=== PATIENT | female | born 1965 | race Caucasian/White ===

== ENCOUNTER 2016-11-22 14:53 | Emergency (ER) | payer BC ==
--- NOTE | 2016-11-22 15:13 | EDM.PDOC ---
ED HPI GENERAL MEDICAL PROBLEM - General Chief Complaint: Respiratory Problem Stated Complaint: COUGH/SOB Time Seen by Provider: 11/22/16 15:05 - History of Present Illness INITIAL COMMENTS - FREE TEXT/NARRATIVE: 51-year-old female presents emergency room with cough. This is been going on for a little over a month now patient's been treated with a round of amoxicillin and is not getting better. She's now noticing some productivity to the cough mostly clear slightly off color. Patient notices some wheezy sounds coming from her throat. She does not have a lot of upper airway congestion but says she has a lot of drainage. She is treated for hypertension hyperlipidemia and sleep apnea she has not had any recent medication changes. 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, nyquil - Related Data Allergies Allergy/AdvReac Type Severity Reaction Status Date / Time No Known Allergies Allergy Verified 11/22/16 15:00 Home Meds: Home Meds Multivitamin [Multivitamins] 1 each PO DAILY 12/30/13 [History] Cyanocobalamin/FA/Pyridoxine [Folbic] 1 tab PO DAILY 08/28/16 [History] Hydrochlorothiazide [Hydrochlorothiazide] 1 tab PO DAILY 08/28/16 [History] Venlafaxine HCl [Venlafaxine ER] 2 cap PO DAILY 08/28/16 [History] atorvaSTATin Calcium [Atorvastatin Calcium] 1 tab PO DAILY 08/28/16 [History] Doxycycline Hyclate 100 mg PO Q12H #14 capsule 11/22/16 [Rx] Doxycycline [Vibramycin] 100 mg PO BID #14 cap 11/22/16 [Rx] Past Medical History HEENT History: Reports: Impaired vision, Other (see below) Other HEENT History: wears contacts/glasses Cardiovascular History: Reports: High cholesterol, Hypertension Respiratory History: Reports: Sleep apnea Other Genitourinary History: stress urinary incontinence 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: Reports: Polycystic Ovaries, , Other (see below) Other OB/BYN History: menorrhagia, x2, hysteroscopy Musculoskeletal History: Neurological History: Reports: None Psychiatric History: Reports: Anxiety, Other (see below) 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 Endocrine/Metabolic History: Reports: Obesity/BMI 30+ Hematologic History: Reports: None Immunologic History: Reports: None Oncologic (Cancer) History: Reports: None Dermatologic History: Reports: Eczema - Past Surgical History HEENT Surgical History: Reports: Adenoidectomy, Tonsillectomy GI Surgical History: Reports: Bariatric procedure Female Surgical History: Reports: Breast reduction, D&C, Other (see below) Other Female Surgeries/Procedures: bladder lift Other Musculoskeletal Surgeries/Procedures:: surgery for broken femur with olu placement Social & Family History - Tobacco Use Smoking Status *Q: Never Smoker - Recreational Drug Use Recreational Drug Use: No ED ROS GENERAL - Review of Systems Review Of Systems: See Below Constitutional: Reports: no symptoms. Denies: fever, chills HEENT: Reports: Rhinitis. Denies: Ear pain, Eye pain, Sinus problem Respiratory: Reports: Wheezing, Cough, Sputum. Denies: Shortness of Breath, Pleuritic Chest Pain Cardiovascular: Reports: No symptoms GI/Abdominal: Reports: No symptoms Neurological: Reports: No Symptoms ED EXAM, GENERAL - Physical Exam Exam: See Below Exam Limited By: No limitations General Appearance: alert, no apparent distress Eye Exam: bilateral eye: normal inspection Ears: normal external exam, normal canal, hearing grossly normal, normal TMs Nose: normal inspection, normal mucosa, no blood Throat/Mouth: Normal inspection, Normal lips, Normal teeth, Normal gums, Normal oropharynx, Normal voice, No airway compromise Head: atraumatic, normocephalic, other (No sinus tenderness with percussion) Neck: normal inspection, supple, non-tender, full range of motion. No: lymphadenopathy (L), lymphadenopathy (R) Respiratory/Chest: no respiratory distress, lungs clear, normal breath sounds Cardiovascular: regular rate, rhythm, no edema, no murmur Course - Vital Signs Last Recorded V/S: Last Vital Signs Temp 35.9 C 11/22/16 15:00 Pulse 85 11/22/16 15:00 Resp 16 11/22/16 15:00 BP 142/87 H 11/22/16 15:00 Pulse Ox 99 11/22/16 15:29 - Orders/Labs/Meds Orders: Active Orders 24 hr Category Date Time Status RT Post Treatment Assessment [RC] Click To Edit Care 11/22/16 15:16 Active RT Pre-Treatment Assessment [RC] Click To Edit Care 11/22/16 15:16 Active Chest 2V [CR] Stat Exams 11/22/16 15:14 Taken Meds: Medications Discontinued Medications Generic Name Dose Route Start Last Admin Trade Name Prosper PRN Reason Stop Dose Admin Albuterol 6.7 gm 11/22/16 15:15 11/22/16 15:27 Proventil Hfa INH 11/22/16 15:16 2 puff ONETIME ONE Administration - Re-Assessments/Exams Free Text/Narrative Re-Assessment/Exam: 11/22/16 15:56 Chest x-ray is nondiagnostic. Patient did get some improvement with her albuterol MDI. With the duration this patient's illness will put her on a week's worth of doxycycline 100 mg twice a day Departure - Departure Time of Disposition: 15:57 Disposition: Home, Self-Care 01 Clinical Impression: Bronchitis Prescriptions: Doxycycline [Vibramycin] 100 mg PO BID #14 cap Doxycycline Hyclate 100 mg PO Q12H #14 capsule Additional Instructions: Return to the emergency room with any questions or problems. Followup with your regular provider at the end of this next week if needed. He been started on albuterol inhaler uses 2 puffs every 4 hours while awake. He been given a prescription for doxycycline, this is an antibiotic, take one twice daily for one week. - My Orders Last 24 Hours: My Active Orders 11/22/16 15:14 Chest 2V [CR] Stat 11/22/16 15:16 RT Post Treatment Assessment [RC] Click To Edit RT Pre-Treatment Assessment [RC] Click To Edit - Assessment/Plan Last 24 Hours: My Active Orders 11/22/16 15:14 Chest 2V [CR] Stat 11/22/16 15:16 RT Post Treatment Assessment [RC] Click To Edit RT Pre-Treatment Assessment [RC] Click To Edit
[2016-11-22] MEDS ORDERED: Albuterol 6.7 GM Inhaler INH ONE (15:15)
[2016-11-22 16:20] VITALS: BP 137/82
--- NOTE | 2016-11-23 11:58 | CR ---
Chest: Two views of the chest were obtained. Comparison: Previous chest x-ray of 10/19/13. Heart size is normal. Mild tortuosity of the thoracic aorta is seen. Lungs are clear with no acute infiltrates. Bony structures appear within normal limits for the patient's age. Surgical clips are seen within the upper abdomen. Impression: 1. Incidental findings. Nothing acute is identified on two-view chest x-ray. Diagnostic code #2
== END 2016-11-22 16:08 | disposition home or self-care (01) ==
LOC: JD.ED 14:53
DX: J40 Bronchitis, not specified as acute or chronic (principal); E78.00 Pure hypercholesterolemia, unspecified; I10 Essential (primary) hypertension; F41.9 Anxiety disorder, unspecified; E66.9 Obesity, unspecified; Z79.899 Other long term (current) drug therapy; Z98.890 Other specified postprocedural states; Z98.84 Bariatric surgery status
CPT/HCPCS: 71020; 94664; 99285; A9270; 99283

== ENCOUNTER 2018-09-14 07:40 | Emergency (ER) | payer BC ==
--- NOTE | 2018-09-14 08:13 | EDM.PDOC ---
ED HPI GENERAL MEDICAL PROBLEM - General Chief Complaint: Chest Pain Stated Complaint: CHEST PAIN Time Seen by Provider: 09/14/18 07:51 Source of Information: Reports: Patient, RN Notes Reviewed History Limitations: Reports: No Limitations - History of Present Illness INITIAL COMMENTS - FREE TEXT/NARRATIVE: The patient states that she has been experiencing retrosternal chest discomfort on and off for the past 3 months. The patient points with one finger to her midsternum, although she states that it sometimes radiates around her chest, and occasionally down her left arm. She describes the sensation as "throbbing" or an ache, more of a discomfort than a pain. It tends to come on gradually, lasting only a few minutes. The patient has not identified any modifiers, including exertion. She has no associated dyspnea, nausea, diaphoresis, or sense of impending doom. No prior medical evaluation for this complaint. It is unclear why the patient specifically came into the ED this morning, saying only that her made her come. The patient's PCP is Dr. Riojas. - Related Data Allergies Allergy/AdvReac Type Severity Reaction Status Date / Time No Known Allergies Allergy Verified 09/14/18 07:47 Home Meds: Home Meds Multivitamin [Multivitamins] 1 each PO DAILY 12/30/13 [History] Hydrochlorothiazide 25 mg PO DAILY 08/28/16 [History] Venlafaxine HCl [Venlafaxine ER] 150 mg PO DAILY 08/28/16 [History] atorvaSTATin Calcium [Atorvastatin Calcium] 40 mg PO DAILY 08/28/16 [History] Aspirin [Halfprin] 81 mg PO DAILY 09/14/18 [History] Past Medical History HEENT History: Reports: Impaired Vision, Other (See Below) Other HEENT History: wears contacts/glasses Cardiovascular History: Reports: High Cholesterol, Hypertension Respiratory History: Reports: Sleep Apnea (nightly CPAP 6) Genitourinary History: Reports: Urinary Incontinence (stress incontinence) 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 ED EXAM, GENERAL - Physical Exam Exam: See Below Exam Limited By: No Limitations General Appearance: Alert, WD/WN, No Apparent Distress Eye Exam: Bilateral Eye: EOMI, Normal Inspection Ears: Normal External Exam, Hearing Grossly Normal Nose: Normal Inspection Throat/Mouth: Normal Inspection, Normal Lips, Normal Voice, No Airway Compromise Head: Atraumatic, Normocephalic Neck: Normal Inspection, Full Range of Motion Respiratory/Chest: No Respiratory Distress, Lungs Clear, Normal Breath Sounds, No Accessory Muscle Use, Chest Non-Tender Cardiovascular: Normal Peripheral Pulses, Regular Rate, Rhythm, No Gallop, No JVD, No Murmur, No Rub Peripheral Pulses: 4+: Radial (L), Radial (R) GI/Abdominal: Normal Bowel Sounds, Soft, Non-Tender, No Organomegaly, No Distention, No Abnormal Bruit, No Mass, Other (Obese) (Female) Exam: Deferred Rectal (Female) Exam: Deferred Back Exam: Normal Inspection, Full Range of Motion, NT Extremities: Normal Inspection, Normal Range of Motion, Normal Capillary Refill Neurological: Alert, Oriented, Normal Cognition, No Motor/Sensory Deficits Psychiatric: Normal Affect Skin Exam: Warm, Dry, Intact, Normal Color, No Rash EKG INTERPRETATION EKG Date: 09/14/18 Time: 07:45 Rhythm: NSR Rate (Beats/Min): 82 [place]: Normal P-Wave: Present QRS: Normal ST-T: Normal QT: Normal Comparison: NA - No Prior EKG Course - Vital Signs Last Recorded V/S: Last Vital Signs Temp 36.1 C 09/14/18 07:40 Pulse 86 09/14/18 07:40 Resp 16 09/14/18 07:40 BP 145/94 H 09/14/18 07:40 Pulse Ox 96 09/14/18 07:40 - Orders/Labs/Meds Orders: Active Orders 24 hr Category Date Time Status EKG Documentation Completion [RC] STAT Care 09/14/18 07:42 Active Labs: Laboratory Tests 09/14/18 09/14/18 09/14/18 Range/Units 08:00 08:00 08:00 WBC 6.22 (3.98-10.04) K/mm3 RBC 5.00 (3.98-5.22) M/mm3 Hgb 14.6 (11.2-15.7) gm/L Hct 44.0 (34.1-44.9) % MCV 88.0 (79.4-94.8) fl MCH 29.2 (25.6-32.2) pg MCHC 33.2 (32.2-35.5) g/dl RDW Std Deviation 46.6 H (36.4-46.3) fL Plt Count 176 L (182-369) K/mm3 MPV 12.6 H (9.4-12.3) fl Neutrophils % (Manual) 56 (40-60) % Band Neutrophils % 0 (0-10) % Lymphocytes % (Manual) 33 (20-40) % Atypical Lymphs % 0 % Monocytes % (Manual) 8 (2-10) % Eosinophils % (Manual) 3 (0.7-5.8) % Basophils % (Manual) 0 L (0.1-1.2) Platelet Estimate Adequate RBC Morph Comment Normal D-Dimer, Quantitative 0.92 H (0.19-0.50) mg/L Sodium 141 (136-145) mEq/L Potassium 3.5 (3.5-5.1) mEq/L Chloride 104 (98-107) mEq/L Carbon Dioxide 30 (21-32) mEq/L Anion Gap 10.5 (5-15) BUN 18 (7-18) mg/dL Creatinine 0.8 (0.55-1.02) mg/dL Est Cr Clr Drug Dosing 67.27 mL/min Estimated GFR (MDRD) > 60 (>60) mL/min BUN/Creatinine Ratio 22.5 H (14-18) Glucose 97 (74-106) mg/dL Calcium 8.8 (8.5-10.1) mg/dL Total Bilirubin 0.4 (0.2-1.0) mg/dL AST 23 (15-37) U/L ALT 35 (14-59) U/L Alkaline Phosphatase 107 (46-116) U/L Troponin I < 0.017 (0.00-0.056) ng/mL Total Protein 6.9 (6.4-8.2) g/dl Albumin 3.3 L (3.4-5.0) g/dl Globulin 3.6 gm/dL Albumin/Globulin Ratio 0.9 L (1-2) - Re-Assessments/Exams Free Text/Narrative Re-Assessment/Exam: 09/14/18 08:07 It is unclear what the cause of the patient's chest discomfort is, but it does not appear to be cardiac in etiology. I suspect that it is musculoskeletal, although I cannot prove that. The patient's ECG is unremarkable. I've ordered blood work and a chest x-ray, all of which I expect to be within normal limits. If so, the patient can safely be discharged home, to follow-up with her PCP. An outpatient stress test would be in order. 09/14/18 08:20 2-view chest radiograph appears to be grossly normal. The cardiac silhouette is within normal limits. No pulmonary vascular congestion. No pleural effusions. No focal infiltrate. No pneumothorax. Surgical clips are incidentally noted in the region of the epigastrium. Formal read per the Radiologist pending. 09/14/18 08:52 Test results discussed with the patient. Today's workup is entirely unremarkable , with exception of her D-dimer returning mildly elevated at 0.92. In my opinion , this mild elevation is not consistent with a pulmonary embolus, where we would expect the D-dimer to be significantly elevated. Further, chest pain from a pulmonary embolus is caused by a pulmonary infarct, causing a pleuritic pain. The patient's pain is retrosternal, where there is no pleura, and is not pleuritic in nature. I explained to the patient that my suspicion for PE is very low, despite her mildly elevated D-dimer, nevertheless, because her d- dimer is elevated I offered to perform a CT angiogram of the chest. The patient declined. I believe it is safe to discharge the patient home. I recommended that she follow-up with her PCP, Dr. Riojas, with whom she can discuss the option of an outpatient cardiac stress test. Departure - Departure Time of Disposition: 08:55 Disposition: Home, Self-Care 01 Condition: Good Clinical Impression: Non-cardiac chest pain - Discharge Information *PRESCRIPTION DRUG MONITORING PROGRAM REVIEWED*: Not Applicable *COPY OF PRESCRIPTION DRUG MONITORING REPORT IN PATIENT GABRIELA: Not Applicable Referrals: Jerrod Riojas MD [Primary Care Provider] - Forms: ED Department Discharge Additional Instructions: You were seen in the emergency room midline chest pain, coming and going for the past 3 months. Workup in the ER included blood work, a chest x-ray, and an ECG. Your entire workup was unremarkable, with the exception of your D-dimer, a measure of blood clot, being slightly elevated. As discussed, for a number of reasons, it is unlikely that your elevated D-dimer is due to a blood clot in your lungs. A CT angiogram of your chest was offered, but declined. We recommend that you follow-up with your PCP, Dr. Jerrod Riojas, to discuss the option of obtaining an outpatient cardiac stress test. If any other problems, please do not hesitate to return to the ER. - My Orders Last 24 Hours: My Active Orders 09/14/18 07:42 EKG Documentation Completion [RC] STAT - Assessment/Plan Last 24 Hours: My Active Orders 09/14/18 07:42 EKG Documentation Completion [RC] STAT
--- NOTE | 2018-09-14 08:35 | CR ---
Chest: Two views of the chest were obtained. Comparison: Prior chest x-ray of 11/22/16. Heart size and mediastinum are normal. Lungs are clear with no acute parenchymal change. Bony structures appear unremarkable for the patient's age. Impression: 1. Nothing acute is seen on two-view chest x-ray. Diagnostic code #1
[2018-09-14 09:03] VITALS: BP 144/94
== END 2018-09-14 09:05 | disposition home or self-care (01) ==
LOC: JD.ED 07:40
DX: R07.89 Other chest pain (principal); I10 Essential (primary) hypertension; E66.9 Obesity, unspecified; Z79.899 Other long term (current) drug therapy
CPT/HCPCS: 36415; 71046; 71046-26; 80053; 84484; 85007; 85027; 85379; 93005; 93010; 99283; 99285-25

== ENCOUNTER 2021-01-28 08:13 | Emergency (ER) | payer BC ==
[2021-01-28 08:37] VITALS: BP 158/102; PULSE 85
--- NOTE | 2021-01-28 08:57 | EDM.PDOC ---
ED HPI GENERAL MEDICAL PROBLEM - General Chief Complaint: Chest Pain Stated Complaint: CHEST PAIN Time Seen by Provider: 01/28/21 08:21 Source of Information: Reports: Patient History Limitations: Reports: No Limitations - History of Present Illness INITIAL COMMENTS - FREE TEXT/NARRATIVE: 55-year-old female presents the emergency department with complaints of retrosternal chest discomfort that has been intermittent for the past 2 weeks. The patient states that the pain at times does radiate into her left chest area. She denies any aggravating or relieving symptoms. She states it just comes on randomly and then resolves. She denies any diaphoresis, nausea, vomiting or shortness of breath associated with the chest discomfort. She states that over the course of about the past month she has noticed that when she lays flat in bed that she is more short of breath. She does sleep with a CPAP. She also notes that she has had some increased swelling to her feet and ankles over the course of approximately the last month. She does take hydrochlorothiazide for hypertension. And she states that her antilipid medication was changed to Crestor recently after she had bone studies completed. She denies smoking history. She drinks alcohol occasionally. Her primary care provider is Dr. Gallegos. Middle Chest Pain Score (Numeric/FACES): 5 - Related Data Allergies Allergy/AdvReac Type Severity Reaction Status Date / Time No Known Allergies Allergy Verified 01/28/21 08:36 Home Meds: Home Meds Multivitamin [Multivitamins] 1 each PO DAILY 12/30/13 [History] Hydrochlorothiazide 25 mg PO DAILY 08/28/16 [History] Venlafaxine HCl [Venlafaxine ER] 150 mg PO DAILY 08/28/16 [History] atorvaSTATin Calcium [Atorvastatin Calcium] 40 mg PO DAILY 08/28/16 [History] Aspirin [Halfprin] 81 mg PO DAILY 09/14/18 [History] Past Medical History HEENT History: Reports: Impaired Vision, Other (See Below) Other HEENT History: wears contacts/glasses Cardiovascular History: Reports: High Cholesterol, Hypertension Respiratory History: Reports: Sleep Apnea Genitourinary History: Reports: Urinary Incontinence Other Genitourinary History: stress incontinence. [employer] History: Reports: Polycystic Ovaries, Musculoskeletal History: Reports: Fracture Psychiatric History: Reports: Anxiety Endocrine/Metabolic History: Reports: Obesity/BMI 30+ Dermatologic History: Reports: Eczema - Infectious Disease History Infectious Disease History: Reports: Chicken Pox - Past Surgical History HEENT Surgical History: Reports: Adenoidectomy, Oral Surgery, Tonsillectomy Other HEENT Surgeries/Procedures: wisdom teeth removed. GI Surgical History: Reports: Bariatric Procedure Female Surgical History: Reports: Breast Reduction, D&C, Hysterectomy, Other (See Below) Other Female Surgeries/Procedures: hysteroscopy Musculoskeletal Surgical History: Reports: Other (See Below) Other Musculoskeletal Surgeries/Procedures:: surgery for broken femur with olu placement Social & Family History - Family History Family Medical History: No Pertinent Family History - Tobacco Use Tobacco Use Status *Q: Never Tobacco User - Caffeine Use Caffeine Use: Reports: Other Other Caffeine Use: rarely - Recreational Drug Use Recreational Drug Use: No - Living Situation & Occupation Living situation: Reports: , with Spouse 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 ED EXAM, GENERAL - Physical Exam Exam: See Below Exam Limited By: No Limitations General Appearance: Alert, WD/WN, No Apparent Distress Ears: Normal External Exam, Hearing Grossly Normal Nose: Normal Inspection Throat/Mouth: Normal Inspection, Normal Lips, Normal Voice, No Airway Compromise Head: Atraumatic, Normocephalic Neck: Normal Inspection, Supple Respiratory/Chest: No Respiratory Distress, Lungs Clear, Normal Breath Sounds, No Accessory Muscle Use, Chest Non-Tender Cardiovascular: Normal Peripheral Pulses, Regular Rate, Rhythm, No Edema, No Murmur Peripheral Pulses: 2+: Radial (L), Radial (R) GI/Abdominal: Normal Bowel Sounds, Soft, Non-Tender, No Distention (Female) Exam: Deferred Rectal (Female) Exam: Deferred Back Exam: Normal Inspection, Full Range of Motion Extremities: Normal Inspection, Normal Range of Motion, Non-Tender, No Pedal Edema, Normal Capillary Refill Neurological: Alert, Oriented, Normal Cognition Psychiatric: Normal Affect, Normal Mood Skin Exam: Warm, Dry, Intact, Normal Color, No Rash Lymphatic: No Adenopathy #1 Interpretation EKG Date: 01/28/21 Time: 08:24 Rhythm: NSR Rate (Beats/Min): 83 [place]: Normal P-Wave: Present QRS: Normal ST-T: Normal QT: Normal EKG Interpretation Comments: Per Dr. Hardin interpretation: sinus rhythm @ 83; low voltage, precordial leads Course - Vital Signs Text/Narrative:: Upon assessment, the patient is awake alert and oriented. She is denying any chest discomfort or shortness of breath at this time. She denies cough, fever, chills, nausea, vomiting or diarrhea. She denies any history of GERD or reflux type symptoms. I have ordered labs to include a CBC, CMP, magnesium level, troponin, and proBNP. I will also order an EKG and a portable view of the chest. Last Recorded V/S: Last Vital Signs Temp 98.7 F 01/28/21 08:31 Pulse 85 01/28/21 08:31 Resp 18 01/28/21 08:31 BP 158/102 H 01/28/21 08:31 Pulse Ox 99 01/28/21 08:31 - Orders/Labs/Meds Orders: Active Orders 24 hr Category Date Time Status EKG Documentation Completion [RC] ASDIRECTED Care 01/28/21 08:21 Active EKG 12 Lead [EK] Stat Ther 01/28/21 08:21 Ordered Labs: Laboratory Tests 01/28/21 01/28/21 01/28/21 Range/Units 09:00 09:00 09:00 WBC 5.10 (3.98-10.04) K/mm3 RBC 4.47 (3.98-5.22) M/mm3 Hgb 13.0 D (11.2-15.7) gm/dl Hct 39.7 (34.1-44.9) % MCV 88.8 (79.4-94.8) fl MCH 29.1 (25.6-32.2) pg MCHC 32.7 (32.2-35.5) g/dl RDW Std Deviation 47.5 H (36.4-46.3) fL Plt Count 161 L (182-369) K/mm3 MPV 12.0 (9.4-12.3) fl Neut % (Auto) 56.3 (34.0-71.1) % Lymph % (Auto) 32.9 (19.3-51.7) % [place] % (Auto) 7.3 (4.7-12.5) % Eos % (Auto) 2.5 (0.7-5.8) Baso % (Auto) 1.0 (0.1-1.2) % Neut # (Auto) 2.87 (1.56-6.13) K/mm3 Lymph # (Auto) 1.68 (1.18-3.74) K/mm3 [place] # (Auto) 0.37 H (0.24-0.36) K/mm3 Eos # (Auto) 0.13 (0.04-0.36) K/mm3 Baso # (Auto) 0.05 (0.01-0.08) K/mm3 Sodium 145 (136-145) mEq/L Potassium 3.1 L (3.5-5.1) mEq/L Chloride 105 (98-107) mEq/L Carbon Dioxide 31 (21-32) mEq/L Anion Gap 12.1 (5-15) BUN 19 H (7-18) mg/dL Creatinine 0.9 (0.55-1.02) mg/dL Est Cr Clr Drug Dosing TNP Estimated GFR (MDRD) > 60 (>60) mL/min BUN/Creatinine Ratio 21.1 H (14-18) Glucose 104 H (70-99) mg/dL Calcium 8.6 (8.5-10.1) mg/dL Magnesium 2.2 (1.8-2.4) mg/dL Total Bilirubin 0.4 (0.2-1.0) mg/dL AST 32 (15-37) U/L ALT 34 (14-59) U/L Alkaline Phosphatase 115 (46-116) U/L Troponin I < 0.017 (0.00-0.056) ng/mL NT-Pro-B Natriuret Pep 84 (0-125) pg/mL Total Protein 6.3 L (6.4-8.2) g/dl Albumin 3.3 L (3.4-5.0) g/dl Globulin 3.0 gm/dL Albumin/Globulin Ratio 1.1 (1-2) Meds: Medications Discontinued Medications Generic Name Dose Route Start Last Admin Trade Name Freq PRN Reason Stop Dose Admin Potassium Chloride 40 meq 01/28/21 10:39 Potassium Chloride 20 Meq Tab.Er PO 01/28/21 10:40 ONETIME ONE - Re-Assessments/Exams Free Text/Narrative Re-Assessment/Exam: 01/28/21 10:37 Radiologist impression portable view of the chest: 1. Nothing acute is appreciated on portable chest x-ray. 01/28/21 10:38 Hematology has essentially unremarkable Chemistry reveals a sodium of 145, potassium 3.1, chloride 105, anion gap 12.1, BUN 19, creatinine 0.9, glucose 104, calcium 8.6, magnesium 2.2, troponin less than 0.017, proBNP 84 Patient will receive 40 mEq of potassium orally. She will then be discharged home with recommendations that she follow-up with her primary care provider. Patient's chest pain does not appear to be cardiac in origin. I do not know the cause of the patient's chest pain however is recommended that she follow-up with Dr. Gallegos at his next available appointment. Patient may need an echocardiogram as well. Departure - Departure Time of Disposition: 10:44 Disposition: Home, Self-Care 01 Condition: Good Clinical Impression: Non-cardiac chest pain Instructions: Nonspecific Chest Pain, Adult, [id number] Referrals: Jerrod Riojas MD [Primary Care Provider] - Forms: ED Department Discharge Additional Instructions: You were seen in the emergency department today with complaints of chest discomfort. Full cardiac work-up was completed to include labs, EKG and a chest x-ray. This was all essentially unremarkable. Your potassium level however was slightly low so you were supplemented with an oral potassium tab. Try to start eating potassium rich foods such as bananas or green leafy vegetables. Recommend that you follow-up with your primary care provider in about a week for further evaluation. Be sure to mention the shortness of breath that you have upon laying flat in bed and the increased swelling noted to your feet and ankles as you may need to have an echocardiogram. Should your condition worsen or change, do not hesitate returning to the emergency department. Sepsis Event Note (ED) - Evaluation Sepsis Screening Result: No Definite Risk - Focused Exam Vital Signs: Vital Signs Temp Pulse Resp BP Pulse Ox 01/28/21 08:31 98.7 F 85 18 158/102 H 99 - My Orders Last 24 Hours: My Active Orders 01/28/21 08:21 EKG Documentation Completion [RC] ASDIRECTED EKG 12 Lead [EK] Stat - Assessment/Plan Last 24 Hours: My Active Orders 01/28/21 08:21 EKG Documentation Completion [RC] ASDIRECTED EKG 12 Lead [EK] Stat
--- NOTE | 2021-01-28 10:02 | CR ---
Chest: Portable view of the chest was obtained. Comparison: Prior chest x-ray of 09/14/18. Heart size and mediastinum are within normal limits. Lungs are clear with no acute parenchymal change. Bony structure shows nothing acute. Impression: 1. Nothing acute is appreciated on portable chest x-ray. Diagnostic code #1
[2021-01-28] MEDS ORDERED: Potassium Chloride 20 MEQ Tab.ER PO ONE (10:39)
== END 2021-01-28 10:56 | disposition home or self-care (01) ==
LOC: JD.ED 08:13
DX: R07.2 Precordial pain (principal); R07.89 Other chest pain; E78.00 Pure hypercholesterolemia, unspecified; I10 Essential (primary) hypertension; E66.9 Obesity, unspecified; Z68.30 Body mass index [BMI] 30.0-30.9, adult; Z79.82 Long term (current) use of aspirin; Z79.899 Other long term (current) drug therapy
CPT/HCPCS: 36415; 71045; 80053; 83735; 83880; 84484; 85025; 93005; 99285; A9270; 93010; 99284

== ENCOUNTER 2022-06-14 10:20 | Emergency (ER) | payer BC ==
[2022-06-14] MEDS ORDERED: Fluorescein 1 MG Ophth Strip EYERT ONE (11:51)
[2022-06-14] MEDS ORDERED: Proparacaine 0.5% Ophth Soln 15 ML Bottle EYEBOTH ONE (11:51)
[2022-06-14] MEDS ORDERED: Erythromycin Base 0.5% Ophth Oint 1 GM Tube EYERT ONE (12:44)
[2022-06-14 13:32] VITALS: BP 160/105; PULSE 88
== END 2022-06-14 13:33 | disposition home or self-care (01) ==
LOC: JD.ED 10:20
DX: S05.01XA Injury of conjunctiva and corneal abrasion without foreign body, right eye, initial encounter (principal); E78.00 Pure hypercholesterolemia, unspecified; I10 Essential (primary) hypertension; E66.9 Obesity, unspecified; Z68.42 Body mass index [BMI] 45.0-49.9, adult; Z79.899 Other long term (current) drug therapy; Z79.82 Long term (current) use of aspirin
CPT/HCPCS: 99283; A9270-GY

== ENCOUNTER 2023-08-10 16:50 | Emergency (ER) | payer BC ==
[2023-08-10] MEDS ORDERED: Ondansetron 4 MG/2 ML SDV IVPUSH ONE (17:30)
[2023-08-10] MEDS ORDERED: LORazepam 2 MG/ML SDV IVPUSH ONE (17:30)
[2023-08-10] MEDS ORDERED: Meclizine 12.5 MG Tab PO ONE (17:36)
[2023-08-10] MEDS ORDERED: Sodium Chloride 0.9% 1,000 ML IV SCH (17:45)
[2023-08-10 18:53] LABS: APPEARANCE,URINE CLEAR (Clear); BILIRUBIN,URINE NEGATIVE (Negative); COLOR,URINE YELLOW (Yellow); GLUCOSE,URINE NEGATIVE (Negative); KETONES,URINE NEGATIVE (Negative); LEUKOCYTE ESTERASE,URINE TRACE (Negative); NITRITE,URINE NEGATIVE (Negative); OCCULT BLOOD,URINE NEGATIVE (Negative); PROTEIN,URINE NEGATIVE (Negative)
[2023-08-10 19:22] LABS: BACTERIA,URINE FEW /hpf (FEW); MUCUS,URINE FEW /hpf (FEW); RBC,URINE 0-5 /hpf (0-5); SQUAMOUS EPITHELIAL CELLS,UR 0-5 /hpf (0-5)
[2023-08-10 20:25] VITALS: BP 147/89; PULSE 75
== END 2023-08-10 20:26 | disposition home or self-care (01) ==
LOC: JD.ED 16:50
DX: H83.09 Labyrinthitis, unspecified ear (principal); I10 Essential (primary) hypertension; E66.9 Obesity, unspecified; Z79.82 Long term (current) use of aspirin; Z79.899 Other long term (current) drug therapy; Z68.41 Body mass index [BMI] 40.0-44.9, adult
CPT/HCPCS: 70450; 81001; 87086; 96361; 96374; 96375; 99284; A9270; J2060; J2405; J7030

== ENCOUNTER 2024-03-22 17:13 | Emergency (ER) | payer BC ==
[2024-03-22] MEDS: Ketorolac 60 MG/2 ML SDV IM ONE (20:07)
[2024-03-22 21:21] VITALS: BP 125/90; PULSE 88
== END 2024-03-22 20:05 | disposition home or self-care (01) ==
LOC: JD.ED 17:13
DX: M25.562 Pain in left knee (principal); I10 Essential (primary) hypertension; E78.00 Pure hypercholesterolemia, unspecified; E66.9 Obesity, unspecified; Z86.16 Personal history of COVID-19; Z79.899 Other long term (current) drug therapy; Z79.82 Long term (current) use of aspirin
CPT/HCPCS: 73562; 93971; 96372; 99284; J1885

== ENCOUNTER 2024-10-26 19:01 | Emergency (ER) | payer BC ==
[2024-10-26 19:45] VITALS: BP 151/96; PULSE 80
[2024-10-26] MEDS ORDERED: Fluorescein 1 MG Ophth Strip ONE (20:15)
[2024-10-26] MEDS: Fluorescein 1 MG Ophth Strip EYEBOTH ONE (20:19)
== END 2024-10-26 21:00 | disposition home or self-care (01) ==
LOC: JD.ED 19:01
DX: H53.8 Other visual disturbances (principal); H57.89 Other specified disorders of eye and adnexa; I10 Essential (primary) hypertension; E78.00 Pure hypercholesterolemia, unspecified; E66.9 Obesity, unspecified; Z79.82 Long term (current) use of aspirin; Z79.899 Other long term (current) drug therapy; Z86.16 Personal history of COVID-19; Z90.710 Acquired absence of both cervix and uterus; Z68.42 Body mass index [BMI] 45.0-49.9, adult
CPT/HCPCS: 99283